=== PATIENT | male | born 1930 ===

== ENCOUNTER 2018-05-25 13:10 | Outpatient (CLI) | payer MEDICARE, OTHER ==
--- NOTE | 2018-05-25 17:13 | CT ---
CT TEMPORAL BONES NONCONTRAST: 05/25/2018 HISTORY: An 88-year-old male with H90.8, mixed hearing loss of left ear. COMPARISON: None. 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 The osseous defect at the roof of the petrous apex superiorly, is approximate ly 0.5 cm wide. The osseous defect at the inferior aspect of the petrous apex is approximately 1 cm. This osseous defect is filled with heterogeneous attenuation soft tissue density material, which it self, measures approximately 1.1 x 2.2 x 2.5 cm. The osseous erosion involves the anteromedial aspec t of the left internal auditory canal. There is what appears to be a surgically created canal in the inferior portion of the left petrous wanda ne, laterally, which is oriented in the horizontal transverse direction, has a caliber of approximate ly 0.3 cm, travels just inferior to the left cochlea, and provides a channel of communication between the mass at the left petrous apex and the left hypotympanum. There is contiguous opacification of t his channel, with soft tissue thickening of the left hypotympanum, which is in turn, contiguous with soft tissue thickening lining the floor of the left external auditory canal. The left external audit ory canal is widened in the craniocaudal dimension. The left tympanic membrane is thickened and cont ains a perforation inferiorly. There is soft tissue density material filling the left oval window ni teresa and surrounding the stapes crura and footplate, and abutting the undersurface of the tympanic seg ment of the left facial (7th cranial) nerve. The rest of the mesotympanum is clear. There is a tiny, thin amount of soft tissue density at the medial edge of the body of the left incus, such that the wanda dy of the incus appears narrowed in the transverse dimension (although the contralateral right incus has a similar appearance, but without the thin soft tissue density). The left epitympanum is otherwi se clear. Left tegmen tympani and left tegmen mastoideum are intact. Much of the bone surrounding th e upper left mastoid air cells appears to have low density, suggestive of inflammatory changes. The left mastoid antrum and most of the left mastoid air cells are clear. There is opacification of a mi nority of the left inferior mastoid air cells (mastoid effusion). In the contralateral right temporal bones, the body of the incus is thin in the transverse dimension, similar to the left side, but there is no abutting soft tissue density material. The entire right m iddle ear cavity, right mastoid antrum, and all the right mastoid air cells, are clear. The rest of the left IAC, the right IAC, and the bilateral cochleae, vestibules, vestibular aqueducts , and semicircular canals, have normal morphology. The bilateral jugular bulbs and the right carotid canal are intact. IMPRESSION: 1. 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 Based on the MRI signal characteristics, the differential di agnosis is cholesterol granuloma vs. mucocele. 2. There is a surgically created small tunnel between this mass and the left hypotympanum. This caridad stella is totally filled with material that is contiguous with soft tissue thickening of the floor of th e left hypotympanum (granulation tissue?), which is contiguous with soft tissue thickening of the earnest or of the left external auditory canal. 3. The left external auditory canal is surgically widened. 4. Thickening and perforation of the left tympanic membrane. 5. Small amount of soft tissue density material filling the left oval window niche and surrounding m uch of the stapes. 6. Abnormal appearance of bone at the roof of the left petrous and tympanic bone. 7. The right middle ear cavity is clear. POS: [facility]
--- NOTE | 2018-05-25 19:47 | MRI ---
MRI BRAIN AND INTERNAL AUDITORY CANALS NONCONTRAST: 05/25/18 HISTORY: 88-year-old male with H90.8. mixed hearing loss. TECHNIQUE: The study was ordered with and without contrast. However, after completion of the noncontrast portion of the MRI, the patient refused the gadolinium-b ased contrast agent injection, and terminated the study at that point. COMPARISON: None. FINDINGS: There is an expansile mass with smooth, well-circumscribed margins, at the petrous apex, measuring ap proximately 1.6 x 1.1 x 2 cm (the CT demonstrated erosion and dehiscence of multiple osseous margins there). There is loss of the normal fatty bone marrow in the adjacent petrous bone around this mass. The mass is T1 hyperintense. It contains regions of moderately lower signal intensity on T1WI and FL AIR inferiorly. No conventional T2 weighted sequence was obtained. (Those are typically performed aft er contrast injection in order to save time at this particular facility). On the 3D SSFP sequence, th e lower portion of the mass has intermediate signal intensity (higher signal intensity than brain par enchyma, but much lower than that of CSF), while the superior portion of the mass has slightly higher signal intensity. This mass communicates with a transversely oriented short thin tunnel, which is it self filled with homogeneously T1 hyperintense material. The caliber of this surgically created canal is approximately 0.2 cm, and its transverse length is approximately 1.1 cm. (The CT demonstrates andriy t this communicates with the hypotympanum of the left middle ear cavity. There is widening of the lef t external auditory canal on that CT also). The mass at the petrous apex does not have restricted diffusion, and therefore is not a cholesteatoma . 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 This mass encroaches upon t he anterior aspect of the left internal auditory canal, narrowing the left proximal IAC, including th e porus acusticus, mildly compressing the left 7th-8th nerve complex there. The distal, peripheral po rtion of the left IAC appears normal. No signal abnormality or morphologic abnormality is identified involving the right IAC and right 7th-8th nerve complex; or the bilateral cochleae, vestibules, and v estibular aqueducts. The ventricles are normal in size and configuration. There are mild chronic ischemic white matter kamla nges of the brain. No evidence of moderate sized or large cerebral, brainstem, or cerebellar infarcti on. No restricted diffusion. No mass effect or midline shift. IMPRESSION: 1) Mass at the left petrous apex. 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 2) The mass communicates via a thin surgical channel with the left middle ear cavity (hypotympan um). 3) The mass mildly compresses the left 7th-8th nerve complex at the proximal aspect of the left internal auditory canal. 1. POS: [facility]
== END 2018-05-25 13:11 | disposition home or self-care (01) ==
LOC: BICCT 13:10
PROVIDERS: ATTEND Otolaryngology Otology & Neurotology
DX: H90.8 Mixed conductive and sensorineural hearing loss, unspecified (principal); H72.92 Unspecified perforation of tympanic membrane, left ear; H93.92 Unspecified disorder of left ear
CPT/HCPCS: 70480; 70551; 70553; 82565